=== PATIENT | male | born 1975 | race Caucasian/White ===

== ENCOUNTER 2017-05-28 15:30 | Emergency (ER) | payer OTHER ==
[~2017-05-28] VITALS: Ht 175.3 cm; Wt 90.7 kg
--- NOTE | ~2017-05-28 | EKG ---
[facility] [employer] [place] [address] ELECTROCARDIOGRAM REPORT Name: BETSY COUCH Nohemi Room #: [id number] Admission: 05/28/17 Attend Phys: Discharge: 05/28/17 Date of : 71 Report #: [id number] THIS REPORT FOR: //name// [facility] ED Test Date: 2017-05-28 Test Time: 17:04:28 Pat Name: BETSY COUCH Department: Room: Gender: Final Expense Agent: [facility] : 1975 Requested By: Geoffrey Hester Order Number: [id number] MD: Wayne Callejas Measurements Intervals [place] Rate: 123 P: 30 ID: [id number] QRS: -61 QRSD: 116 T: 20 QT: 322 QTc: 461 Interpretive Statements Sinus tachycardia Right bundle branch block Low voltage, extremity leads Inferior infarct, age indeterminate Compared to ECG 06/28/2011 13:29:19 Right bundle-branch block now present Low QRS voltage now present Heart rate has increased Electronically Signed On 05-29-2017 8:05:02 DIRECTOR RECORDS MANAGEMENT by Wayne Callejas [email or web address] <ELECTRONICALLY SIGNED> By: Wayne Callejas MD, [facility] 05/29/17 0805 1704 1704 Wayne Callejas MD, [facility] /EPI
[~2017-05-28 15:30] MED LIST: AUGMENTIN 875875 MG PO; BENADRYL ALLERG25 MG PO; IBUPROFEN 800800 M1 PO; MECLIZINE HCL25 M1 PO; REQUIP 1 MG TABL1 M1 PO; SUDAFED30 MG PO; VALIUM2 MG PO; ZOFRAN 4 MG ORAL4 M1 DIS
[2017-05-28 16:09] LABS: HEMATOCRIT 32.9 % (42.0-52.0); HEMOGLOBIN 11.2 gm/dL (14.0-18.0); MCH 29.7 pg (26.0-34.0); MCHC 33.9 g/dL (28.0-37.0); MCV 87.7 fL (80.0-100.0); PLATELET COUNT 344 thou/uL (150-400); RBC 3.75 mil/uL (4.50-6.00); RDW 14.8 % (10.5-14.5); WBC 25.8 thou/uL (4.0-11.0)
[2017-05-28 16:17] LABS: CALCIUM 9.2 mg/dL (8.5-10.1); CREATININE 0.8 mg/dL (0.7-1.3)
[2017-05-28 16:23] LABS: ALBUMIN 3.7 g/dL (3.4-5.0); TOTAL BILIRUBIN 1.5 mg/dL (<0.1-1.0); TOTAL PROTEIN 7.3 g/dL (6.4-8.2)
[2017-05-28 16:29] LABS: URINE BILIRUBIN NEGATIVE (Negative); URINE BLOOD NEGATIVE (Negative); URINE CLARITY CLEAR; URINE COLOR YELLOW; URINE GLUCOSE-RANDOM* NEGATIVE (Negative); URINE KETONES NEGATIVE (Negative); URINE LEUKOCYTES-REFLEX NEGATIVE (Negative); URINE NITRITE-REFLEX NEGATIVE (Negative); URINE PROTEIN (DIPSTICK) NEGATIVE (Negative); URINE UROBILINOGEN 0.2 E.U./dl (0.2-1.0)
[2017-05-28 16:30] LABS: ABSOLUTE NEUTROPHILS 22.2 thou/uL (1.4-8.2); HYPOCHROMASIA 2+
[2017-05-28 16:31] LABS: ANISOCYTOSIS 1+; MICROCYTES SLIGHT
[2017-05-28] MEDS ORDERED: ZANAFLEX4 MG PO (17:44)
[2017-05-28] MEDS ORDERED: REMERON15 MG PO (17:44)
[2017-05-28] MEDS ORDERED: LYRICA300 MG PO (17:44)
[2017-05-28] MEDS ORDERED: OXYCODONE HCL 55 MG PO (18:05)
== END 2017-05-28 19:31 | disposition short-term general hospital (02) ==
LOC: ER 15:30
PROVIDERS: Physician Assistant
DX: J18.8 Other pneumonia, unspecified organism (principal); K52.9 Noninfective gastroenteritis and colitis, unspecified; R33.9 Retention of urine, unspecified; A41.9 Sepsis, unspecified organism; Z88.1 Allergy status to other antibiotic agents; F17.210 Nicotine dependence, cigarettes, uncomplicated